=== PATIENT | male | born 1955 | race Caucasian/White ===

== ENCOUNTER 2017-06-05 11:25 | Emergency (ER) | payer BC ==
[2017-06-05] MEDS ORDERED: Lisinopril 10 MG TAB ONE (12:49)
== END 2017-06-05 14:09 | disposition home or self-care (01) ==
LOC: ERS 11:25
DX: M25.532 Pain in left wrist (principal); I10 Essential (primary) hypertension; Z79.899 Other long term (current) drug therapy; X58.XXXA Exposure to other specified factors, initial encounter
CPT/HCPCS: 99283